=== PATIENT | female | born 1950 | race Caucasian/White ===

== ENCOUNTER → 2017-08-28 | Outpatient (CLI) | payer MEDICARE, OTHER ==
--- NOTE | 2017-09-13 09:29 | SLEEP ---
[address] [address] SLEEP STUDY REPORT Name: PHILIPSAMUELSAMANTHALISA M Room: [facility]#: [id number] Admission: 08/28/17 Attend Phys: Radha Watters, Discharge: Date of : 50 Report #: [id number] THIS REPORT FOR: //name// CC: Radha Rubi This study has been reviewed in its entirety by a board certified sleep specialist REFERRING PHYSICIAN: Bernardino Rubi DO; [place]. TYPE OF STUDY: Home sleep apnea. INDICATION: History of hypertension, feeling fatigued and never feels rested. This was a home sleep apnea test with a total recording time 552.8 minutes. It was noted the patient slept on the right lateral position during the whole night. During the study, the patient had 14 obstructive apneas and 71 hypopneas with overall apnea-hypopnea index of 9.5. The average O2 saturation during the study was 91%. The lowest O2 saturation recorded was 77%. The average heart rate was 69 beats per minute and snoring was reported during the study. IMPRESSION: The above sleep study demonstrates evidence of obstructive sleep apnea with apnea-hypopnea index of 9.5 per hour with oxygen desaturation to a quin of 77%. Please note, the above apnea-hypopnea index is likely an underestimate given the nature of the home sleep apnea test. <ELECTRONICALLY SIGNED> By: Jenny Guthrie MD 09/13/17 0929 [id number] Guthrie MD /eugenie
== END ==
LOC: M.SLEEPLAB 13:08
DX: G47.33 Obstructive sleep apnea (adult) (pediatric) (principal)